=== PATIENT | male | born 1955 | race Caucasian/White ===

== ENCOUNTER 2017-06-07 13:15 | Inpatient (IN) | payer MEDICARE, MEDICAID ==
[2017-06-07] MEDS ORDERED: Lorazepam 1 MG TAB ONE (13:45)
[2017-06-07 15:24] LABS: Hematocrit 41.1 % (42.0-52.0); Mean Platelet Volume 7.7 fL (7.4-10.4); Red Blood Cell (RBC) Count 4.31 mill/uL (4.70-6.10); White Blood Cell (WBC) Count 9.5 thou/uL (4.8-10.8)
[2017-06-07 15:42] LABS: ALT (SGPT) 42 U/L (8-55); AST (SGOT) 67 U/L (5-34); Alkaline Phosphatase 96 U/L (40-150); Anion Gap 10 mmol/L (10-20); BUN (Urea Nitrogen) 32 mg/dL (8.4-25.7); Bilirubin, Total 0.5 mg/dL (0.2-1.2); Calc. Creatinine Clearance 0 mL/min (70-130); Carbon Dioxide 32 mmol/L (23-31); Chloride 96 mmol/L (98-107); Estimated GFR-MDRD 59
[2017-06-07 15:43] LABS: Calcium 14.9 mg/dL (7.8-10.44)
[2017-06-07 15:44] LABS: Troponin I 0.012 ng/mL (< 0.028)
[2017-06-07 15:46] LABS: Neutrophil 93 % (42-75)
--- NOTE | 2017-06-07 16:05 | CT ---
CT OF THE SOFT TISSUES OF THE NECK WITH IV CONTRAST: INDICATION: History of cervical lymphadenopathy, basal cell carcinoma, chronic hepatitis, and severe intellectua l disability. FINDINGS: The visualized intracranial contents appear within normal limits. The visualized assembler installer general space a ppears within normal limits. There is extensive lymphadenopathy involving the cervical chains bilat erally. One of the largest is seen within the right level II-A position measuring 1.8 cm. There is extensive enlargement of the adenoidal and palatine soft tissues. There is a retropharyngeal edema present. There is nonspecific wall thickening involving the hypopharynx. There are prominent lymp h nodes seen adjacent to submandibular and right parotid gland. The thyroid gland is normal-appeari ng. The submandibular gland is normal-appearing. There is extensive lymphadenopathy within the sup raclavicular region. The largest is seen on the right measuring 2.6 cm on image 76 of series 2. Th ere is extensive adenopathy within the mediastinum and axillary regions. The visualized lung apices are clear. There is scattered degenerative and osteoarthritic change. N o definite acute osseous abnormality is evident. Visualized paranasal sinuses are clear. IMPRESSION: Extensive lymphadenopathy of the neck and upper thorax is suspicious for entities such as leukemia o r lymphoma. There is also soft tissue prominence seen involving the lower aspect of the hypopharynx which is non specific. Pharyngitis cannot be entirely excluded. ENT consultation may be helpful. Mild narrowin g of the airway is seen in this location. There is edema seen within the retropharyngeal space whic h is nonspecific. POS: LIZBETH
[2017-06-07] MEDS ORDERED: ISOVUE-370 76%-LOCM 1 ML ONE (16:11)
[2017-06-07] MEDS ORDERED: Zoledronic Acid 4 MG in Sodium Chloride 0.9% 100 ML IVPB SCH (17:45)
[2017-06-07] MEDS ORDERED: Acetaminophen 325 MG TAB PO PRN (18:07)
[2017-06-07 18:41] LABS: Magnesium 2.1 mg/dL (1.6-2.6)
--- NOTE | 2017-06-07 18:47 | HP ---
PRIMARY CARE PHYSICIAN: Dr. Tawanna Hendricks. CHIEF COMPLAINT: Weakness. HISTORY OF PRESENT ILLNESS: Mr. Almonte is a pleasant 61-year-old gentleman, who was seen at [facility] on 06/07/2017. He was sent here from [facility]. Mr. Almonte is currently sedated, having received Ativan for his CT scan of the neck. He is unable to provide any history or review of systems. History was obtained from review of medical record as we ll as from discussion with the emergency room physician. The patient was reportedly refusing to eat at [facility]. He was also weak. He also had a positive infectious mononucleosis screen on 05/26/2017. He also reportedly has cervical lymphaden opathy and was therefore sent to the emergency room. PAST MEDICAL HISTORY: Significant for actinic keratosis, basal cell carcinoma of the nose, benign p rostatic hyperplasia, chronic hepatitis B, dyslipidemia, insomnia, intermittent explosive disorder, nicotine dependence, psoriasis, colon polyposis, seborrheic dermatitis of the scalp, severe intellec tual disability, venous varices and vitamin D deficiency. PAST SURGICAL HISTORY: Significant for liver biopsy and transurethral resection of the prostate. SOCIAL HISTORY: Not available at this time, since the patient is unable to provide. FAMILY HISTORY: Not available at this time. ALLERGIES: No known drug allergies. CURRENT MEDICATIONS: Calcium carbonate 1500 mg daily, clindamycin topical gel 2 times a day, fish o il 2000 mg at bedtime, Myrbetriq 25 mg daily, Pravachol 40 mg at bedtime, Seroquel 300 mg at bedtime , vitamin D3 of 800 units every morning. PHYSICAL EXAMINATION: GENERAL: Mr. Almonte is sleepy, but arousable, not in acute distress. VITAL SIGNS: Blood pressure is 132/78, pulse is 76, he is breathing at rate of 20 and saturating 89 % on room air. He is saturating 92% on 2 liters of oxygen. He is afebrile. EYES: No scleral icterus, no conjunctival pallor. ENT: Moist mucosal membranes, no oropharyngeal erythema or exudates. NECK: Nontender, trachea midline, no thyromegaly. RESPIRATORY: Accessory muscles of breathing are not active. Chest wall movements are symmetric fredrick aterally. LUNGS: Clear to auscultation without wheeze, rhonchi or crepitations. CARDIOVASCULAR: S1 and S2 are heard, regular. Peripheral pulses are palpable. No carotid bruit, n o pericardial rub. ABDOMEN: Soft, nontender, bowel sounds heard, no hepatomegaly, no splenomegaly. NEUROLOGIC: Full neurologic examination was not possible secondary to the patient's noncooperation. No facial droop. Deep tendon reflexes are 2+, plantar reflexes downgoing bilaterally. MUSCULOSKELETAL: The patient is moving all four extremities. Normal passive range of movement at a ll major extremity joints. LYMPHATIC: The patient has multiple enlarged cervical lymph nodes, soft consistency, not tethered t o skin. PSYCHIATRIC: Unable to assess mood, affect or orientation to person, place or time. SKIN: No rashes. He does have cervical swellings. LABORATORY DATA: Mr. Almonte's labs and investigations were reviewed. He had a CT scan of the neck, which showed extensive lymphadenopathy of the neck and upper thorax, suspicious for entities such as leukemia or lymphoma according to the radiologist. Pharyngitis could not be excluded based on the CT scan. He also had mild narrowing of the airway at the pharyngeal level. He had nonspecific laura a within the retropharyngeal space. Laboratory investigations show normal white count, 93% neutroph ils, macrocytic anemia with hemoglobin 13.3, normal platelet count, decreased sodium of 134, normal potassium, elevated blood urea nitrogen of 32, normal creatinine, elevated calcium of 14.9, decrease d albumin of 3.0, elevated AST of 67, normal ALT, normal alkaline phosphatase and normal total bilir ubin. Bell screen is negative. ASSESSMENT AND PLAN: Mr. Almonte is a pleasant 61-year-old gentleman, who was seen at [facility] on 06/07/2017. His problem list includes: 1. Cervical lymphadenopathy: Etiology is unclear, but given his hypercalcemia, is suspicious for m alignancy such as lymphoma. Mr. Almonte will be admitted to the hospital. I will request a CT scan o f the chest, abdomen, and pelvis. Oncologist on-call, has already been contacted by the emergency r oom physician and will be consulted. 2. Hypercalcemia: Mr. Almonte has received Zometa, we will recheck calcium level. We will also prov asa intravenous fluids to decrease the calcium level. 3. Hyponatremia: Mild, we will recheck. 4. Dehydration: The patient is clinically dehydrated. We will administer IV fluids. 5. Chronic hepatitis B: Presumed to be stable. 6. Dyslipidemia: Continue fish oil and Pravachol. 7. Vitamin D deficiency: Check vitamin D level, hold off on supplemental vitamin D at this time gi ruiz his hypercalcemia. LEVEL OF RISK: Moderate. LEVEL OF COMPLEXITY: Moderate.
[2017-06-07] MEDS: Sodium Chloride 0.9% 1,000 ML IV SCH (20:19)
[2017-06-07 21:16] VITALS: BMI 21.4
[2017-06-08] MEDS: Sodium Chloride 0.9% 1,000 ML IV SCH ×3 (05:26→16:45)
[2017-06-08 06:00] LABS: #Basophils 0.1 thou/uL (0.0-0.2); #Eosinphils 0.3 thou/uL (0.0-0.7); #Lymphocytes 1.9 thou/uL (1.20-3.40); #Monocytes 1.8 thou/uL (0.11-0.59); #Neutrophils 8.1 thou/uL (1.40-6.50); %Basophils 0.6 % (0.0-1.0); %Eosinophils 2.3 % (0.0-10.0); %Lymphocytes 15.9 % (21.0-51.0); %Monocytes 14.6 % (0.0-10.0); Hematocrit 41.8 % (42.0-52.0); Mean Platelet Volume 8.2 fL (7.4-10.4); Red Blood Cell (RBC) Count 4.38 mill/uL (4.70-6.10); White Blood Cell (WBC) Count 12.1 thou/uL (4.8-10.8)
[2017-06-08 06:41] LABS: Anion Gap 9 mmol/L (10-20); BUN (Urea Nitrogen) 27 mg/dL (8.4-25.7); BUN/Creatinine Ratio 24.11; Calc. Creatinine Clearance 58 mL/min (70-130); Calcium 11.9 mg/dL (7.8-10.44); Carbon Dioxide 29 mmol/L (23-31); Chloride 104 mmol/L (98-107); Estimated GFR-MDRD 66; Phosphorus 2.1 mg/dL (2.3-4.7)
[2017-06-08] MEDS ORDERED: Lorazepam 0.5 MG TAB PO PRN (06:59)
[2017-06-08] MEDS: Enoxaparin Sodium 40 MG/0.4 ML SYRINGE SC SCH (08:20)
[2017-06-08] MEDS ORDERED: FLU VACC QS2017-18 36 mo. & older 0.5 ML SYRINGE IM ONE (09:00)
--- NOTE | 2017-06-08 11:32 | CT ---
CT CHEST WITH IV CONTRAST CT ABDOMEN WITH IV CONTRAST CT PELVIS WITH IV CONTRAST: Date: 06/08/17 CLINICAL HISTORY: Cervical lymphadenopathy, basal cell carcinoma, chronic hepatitis. Severe intellectual disability. FINDINGS: There is extensive lymphadenopathy involving the neck, chest (mediastinum), axilla, abdomen (mesente craig, retroperitoneal, and retrocrural), pelvic, and bilateral inguinal regions. There are dependent changes in the lung bases with a tiny left pleural effusion. A 12.0 mm parenchym al nodule is present in the right middle lobe. There is some high density material in the dependent portion of the gallbladder. There is a 12.0 mm low density lesion in the left lobe of the liver. These could be better evaluated with US. The spleen is enlarged, measuring about 9.7 cm in oblique AP dimension. The pancreas, kidneys, and a drenal glands are unremarkable. No free air or free fluid is seen in the abdomen or pelvis. There ar e vascular calcifications without evidence of aneurysmal dilatation of the abdominal aorta. The pros park is enlarged. There are degenerative changes in the spine. The enlarged lymph nodes in the inguinal regions measure 3.0 cm in largest dimension on the right, w hich is solid, and 2.3 cm on the left, which is complex (with solid and cystic components). Recommen d choosing the right rather than the left inguinal lymph node if a biopsy is considered. The small bowel loops are not abnormally dilated. A normal appearing appendix is present. IMPRESSION: 1. Extensive lymphadenopathy in the neck, chest, abdomen, pelvis, and inguinal regions suspicious f or lymphoma. 2. Indeterminate 12.0 mm right middle lobe lung nodule. The possibility of this representing lung m alignancy cannot be excluded. POS: LIZBETH
--- NOTE | 2017-06-08 14:53 | PDOC.PN ---
- Subjective Encounter Start Date: 06/08/17 Encounter Start Time: 09:45 Subjective: awake, no agitation or in distress -: maintaining airway - Objective MAR Reviewed: Yes Vital Signs & Weight: Vital Signs (12 hours) Temp Pulse Resp BP Pulse Ox 06/08/17 08:00 98.2 F 78 20 133/83 95 06/08/17 04:00 98.2 F 82 20 162/57 H 89 L Weight Admit Weight 133 lb 1.6 oz Weight 133 lb 1.6 oz I&O: 06/07/17 06/08/17 06/09/17 06:59 06:59 06:59 Intake Total 1200 480 Balance 1200 480 Result Diagrams: 06/08/17 05:42 06/08/17 05:42 Phys Exam - Physical Examination HEENT: PERRLA, sclera anicteric no teeth, has multiple lymph nodes, largest right submand Neck: no JVD Respiratory: no wheezing, no rales Cardiovascular: RRR, no significant murmur Gastrointestinal: soft, non-tender, no distention, positive bowel sounds Musculoskeletal: no edema, pulses present Neurological: non-focal, moves all 4 limbs Dx/Plan (1) Lymphadenopathy Code(s): R59.1 - GENERALIZED ENLARGED LYMPH NODES Status: Acute Comment: likely due to lymphoma, will need biopsy (2) Intellectual disability Code(s): F79 - UNSPECIFIED INTELLECTUAL DISABILITIES Status: Chronic (3) Hypercalcemia Code(s): E83.52 - HYPERCALCEMIA Status: Acute Comment: recieved 1 dose zometa in ER (4) Hepatitis B Status: Chronic Qualifiers: Viral hepatitis chronicity: chronic (5) Dyslipidemia Code(s): E78.5 - HYPERLIPIDEMIA, UNSPECIFIED Status: Chronic (6) Psoriasis Code(s): L40.9 - PSORIASIS, UNSPECIFIED Status: Chronic (7) Seborrheic dermatitis Code(s): L21.9 - SEBORRHEIC DERMATITIS, UNSPECIFIED Status: Chronic - Plan will need biopsy of one of the enlarged lymph nodes -: will d/w /gen surgery for ing node bx -: pt likely has lymphoma -: social work consult for identifying next of kin to help make decisions -: CT chest/abd/pelvis results noted, continue home meds * . Review of Systems - Medications/Allergies Allergies/Adverse Reactions: Allergies Allergy/AdvReac Type Severity Reaction Status Date / Time No Known Allergies Allergy Verified 06/07/17 19:27 Medications: Current Medications Acetaminophen (Tylenol) 650 mg PO Q4H PRN PRN Reason: Headache/Fever or Pain Enoxaparin Sodium (Lovenox) 40 mg SC 0900 [facility] Last Admin: 06/08/17 08:20 Dose: 40 mg Sodium Chloride (Normal Saline 0.9%) 1,000 mls @ 100 mls/hr IV .Q10H [facility] Last Admin: 06/08/17 06:26 Dose: 1,000 mls Lorazepam (Ativan) 0.5 mg PO Q6H PRN PRN Reason: Agitation Last Admin: 06/08/17 08:19 Dose: 0.5 mg
[2017-06-08] MEDS ORDERED: Atorvastatin Calcium 10 MG TAB PO SCH (21:00)
--- NOTE | 2017-06-08 22:41 | CON ---
DATE OF CONSULTATION: 06/08/2017 REASON FOR CONSULTATION: Lymphadenopathy. HISTORY OF PRESENT ILLNESS: Mr. Almonte is a 61-year-old gentleman who is a resident of [facility]. He presented to the emergency room with a complaint of weakness and loss of appetite. He had a recent positive mononucleosis screen in April. He had a cervical lymphadenopathy prior to admission. He had a soft tissue neck CT performed showed extensive lymphadenopathy of the neck and upper thorax. He had a soft tissue prominence in the lower aspect of the hypopharynx. There was mild narrowing of the airway seen at this mass. Lab revealed calcium of 14.9. He did receive a dose of zoledronic acid and was started on IV fluids and admitted for further evaluation. This morning, he had a CT of the chest, abdomen, and pelvis that showed extensive lymphadenopathy involving the neck, chest, mediastinum, axilla , abdomen, mesenteric, retroperitoneal and retrocrural, the pelvic and bilateral inguinal regions. It was suspicious for lymphoma. Patient has a history of severe intellectual disability with intermittent explosive disorder. He is a resident of [facility]. History was obtained from review of medical records and caregiver at bedside. PAST MEDICAL HISTORY: 1. Actinic keratosis. 2. Basal cell carcinoma of the nose. 3. Benign prostatic hypertrophy. 4. Chronic hepatitis B. 5. Dyslipidemia. 6. Insomnia. 7. Polyposis of the colon. 8. Seborrheic dermatitis. 9. Severe intellectual disability. 10. Vitamin D deficiency. PAST SURGICAL HISTORY: TURP and liver biopsy. ALLERGIES: No known drug allergies. HOME MEDICATIONS: 1. Calcium carbonate daily. 2. Clindamycin topical gel p.r.n. 3. Fish oil daily. 4. Myrbetriq 25 mg daily. 5. Pravachol 40 mg 2 tabs at bedtime. 6. Seroquel 300 mg daily. 7. Vitamin D3 daily. FAMILY HISTORY: Unavailable. SOCIAL HISTORY: Lives at [facility]. According to his caregiver, he is able to perform his ADLs with minimal assistance. REVIEW OF SYSTEMS: Unable to obtain secondary to intellectual disability. PHYSICAL EXAMINATION: VITAL SIGNS: Temperature is 98.2, pulse is 78, respiratory rate 20, BP is 133/ 83, he is 95% on room air. GENERAL: The patient is awake and in no acute distress. HEENT: Normocephalic, atraumatic. NECK: Supple. He has palpable cervical lymphadenopathy bilaterally. CARDIOVASCULAR: Regular rate and rhythm. LUNGS: Clear to auscultation. ABDOMEN: Soft, nontender. EXTREMITIES: There is no clubbing, cyanosis or edema. SKIN: There is no rash. LYMPHATIC: He has palpable lymph nodes in his neck and his axillary and in his inguinal space bilaterally. NEUROLOGIC: Nonfocal. PSYCHIATRIC: The patient responds to pleasantries and will shake hands but is unable to ascertain place and time and grasp of the situation. PERTINENT LABORATORY AND X-RAYS: Current WBCs are 12.1, hemoglobin 13.4, hematocrit 41.8, platelet count is 252,000, 66% neutrophils, 16% lymphocytes, 14 % monocytes. Sodium is 138, potassium 3.7, chloride 104, CO2 is 29, BUN is 27, creatinine 1.12, calcium is 11.9, phosphorus 2.1, total bilirubin is 0.5, AST 67 , ALT is 42, alkaline phosphatase is 96, CK-MB is 2.2, troponin 0.012. Serum total protein is 6, albumin 2.6, globulin 3. [place] screen is negative. Radiology per HPI. ASSESSMENT: 1. Extensive lymphadenopathy consistent with lymphoma. 2. Hypercalcemia consistent with bone marrow infiltration. DISCUSSION: I was able to contact his sister and guardian, Ana Luisa Almonte in [place] by cell phone. She was updated on the situation. We discussed the likelihood that this is a lymphoma and that he would need chemotherapy; however , he is a poor candidate for this. He would not understand the current situation and likely become sick from the medications required to treat the lymphoma. Our recommendation is to allow him to go back to his environment that he is in comfortable in and resume his ADLs with the goal of comfort. Discussed that the biopsy would not be necessary if this is their choice, otherwise we will proceed forward. She would like to speak with her brothers and will let us know her decision tomorrow. I will continue IV fluids for his hypercalcemia. Thank you for the consult. We will follow him closely. CARITO
[2017-06-09] MEDS: Sodium Chloride 0.9% 1,000 ML IV SCH ×2 (05:10→12:47)
[2017-06-09 05:47] LABS: Anion Gap 9 mmol/L (10-20); BUN (Urea Nitrogen) 28 mg/dL (8.4-25.7); Calc. Creatinine Clearance 58 mL/min (70-130); Carbon Dioxide 30 mmol/L (23-31); Chloride 101 mmol/L (98-107); Estimated GFR-MDRD 66; Phosphorus 1.6 mg/dL (2.3-4.7)
[2017-06-09 06:24] LABS: Band 8 % (5-11); Hematocrit 40.3 % (42.0-52.0); Mean Platelet Volume 8.3 fL (7.4-10.4); Neutrophil 61 % (42-75); Red Blood Cell (RBC) Count 4.25 mill/uL (4.70-6.10); White Blood Cell (WBC) Count 12.6 thou/uL (4.8-10.8)
[2017-06-09] MEDS: Enoxaparin Sodium 40 MG/0.4 ML SYRINGE SC SCH (08:38)
[2017-06-09 15:03] VITALS: BP 142/88; TEMP 98.1
--- NOTE | 2017-06-09 15:29 | PDOC.PN ---
- Subjective Encounter Start Date: 06/09/17 Encounter Start Time: 10:30 Subjective: awake, not in distress -: is eating per provider from snf - Objective MAR Reviewed: Yes Vital Signs & Weight: Vital Signs (12 hours) Temp Pulse Resp BP Pulse Ox 06/09/17 15:02 98.1 F 98 22 H 142/88 H 92 L 06/09/17 08:47 97 06/09/17 08:00 98.5 F 85 20 122/73 Weight Admit Weight 133 lb 1.6 oz Weight 133 lb 1.6 oz I&O: 06/08/17 06/09/17 06/10/17 06:59 06:59 06:59 Intake Total 1200 960 500 Balance 1200 960 500 Result Diagrams: 06/09/17 05:02 06/09/17 05:02 Phys Exam - Physical Examination HEENT: PERRLA, sclera anicteric Neck: no JVD has multiple lymph nodes, large submandibular right Respiratory: no wheezing, no rales Cardiovascular: RRR, no significant murmur Gastrointestinal: soft, no distention, positive bowel sounds Musculoskeletal: no edema, pulses present Neurological: non-focal, moves all 4 limbs Dx/Plan (1) Lymphadenopathy Code(s): R59.1 - GENERALIZED ENLARGED LYMPH NODES Status: Acute Comment: likely due to lymphoma (2) Intellectual disability Code(s): F79 - UNSPECIFIED INTELLECTUAL DISABILITIES Status: Chronic (3) Hypercalcemia Code(s): E83.52 - HYPERCALCEMIA Status: Acute Comment: recieved 1 dose zometa in ER (4) Hepatitis B Status: Chronic Qualifiers: Viral hepatitis chronicity: chronic (5) Dyslipidemia Code(s): E78.5 - HYPERLIPIDEMIA, UNSPECIFIED Status: Chronic (6) Psoriasis Code(s): L40.9 - PSORIASIS, UNSPECIFIED Status: Chronic (7) Seborrheic dermatitis Code(s): L21.9 - SEBORRHEIC DERMATITIS, UNSPECIFIED Status: Chronic - Plan Ms.Julie Majano is in touch with pts sister -: per their conversation pt is for hospice, is a poor candidate for chemo/rad -: may dc anytime to hospice, CM for help with setting up hospice at [facility] * .
--- NOTE | 2017-06-09 22:28 | DIS ---
DATE OF ADMISSION: 06/07/2017 DATE OF DISCHARGE: 06/09/2017 DISCHARGE DISPOSITION: To snf with hospice. PRIMARY DISCHARGE DIAGNOSIS: Generalized lymphadenopathy suspicious for lymphoma. SECONDARY DISCHARGE DIAGNOSES: History of intellectual disability, living in a snf; hypercal cemia due to lymphoma; chronic hepatitis B; dyslipidemia; psoriasis; seborrheic dermatitis. PROCEDURES DONE DURING HOSPITALIZATION: The patient has had CT soft tissue neck done, which showed extensive lymphadenopathy in the neck, and upper thorax suspicious for leukemia or lymphoma. CT of the chest, abdomen, and pelvis done showed extensive lymphadenopathy in the neck, chest, abdomen, pe lvis and inguinal region suspicious for lymphoma. White count of 9 with H\T\H of 13 and 41, platele t count 249 with 93% neutrophils. He had a serum calcium of 14.9 with albumin levels of 3.0 on the day of admission, 25-hydroxyvitamin D levels were 29.4. Intact PTH 8.8. Discharge calcium is 11. HIV 1 and 2 was nonreactive. [place] screen was negative. DISCHARGE MEDICATIONS: Patient to continue all his home medications as before including Myrbetriq e xtended release 25 mg daily, omega-3 fatty acids 1 capsule twice daily, Pravachol 40 mg p.o. at bedt angella, Seroquel 300 mg p.o. at bedtime. ALLERGIES: No known drug allergies. INPATIENT CONSULTS: Ms. Kyra Majano, for Oncology BRIEF COURSE DURING HOSPITALIZATION: The patient initially got admitted on 06/07/2017 after he was sent from snf for swelling in his neck and generalized weakness. The patient was found to hicks ve had multiple cervical lymph nodes, enlarged, especially the right submandibular lymph node was en larged. He has had a CT neck along with a CT chest, abdomen and pelvis done, all of which revealed significant lymphadenopathy suggestive of lymphoma. The patient had hypercalcemia and received Zome ta in the ER one dose. He has had consultation with Ms. Kyra Majano, for Oncology. Ms. Kyra del real was in touch with the patient's sister who lives in [place] on telephone, who is also the power o f [employer] utility worker for patient due to his intellectual disability. The patient was not a candidate for chem oradiation per Oncology and no further workup was done after discussing with patient's sister. They have also agreed to go under hospice to the snf. In view of this, he is being discharged ba ck to snf with hospice. His overall prognosis is poor. Please [facility].
== END 2017-06-09 17:17 | disposition hospice, home (50) | DRG 841 ==
LOC: ERS 13:15 → T4-A 18:18
PROVIDERS: ADMIT Internal Medicine; ATTEND Internal Medicine
DX: C85.98 Non-Hodgkin lymphoma, unspecified, lymph nodes of multiple sites (principal); F72 Severe intellectual disabilities; C79.52 Secondary malignant neoplasm of bone marrow; E87.1 Hypo-osmolality and hyponatremia; E83.52 Hypercalcemia; B18.1 Chronic viral hepatitis B without delta-agent; E86.0 Dehydration; B27.90 Infectious mononucleosis, unspecified without complication; L57.0 Actinic keratosis; N40.0 Benign prostatic hyperplasia without lower urinary tract symptoms; Z85.828 Personal history of other malignant neoplasm of skin; E78.5 Hyperlipidemia, unspecified; G47.00 Insomnia, unspecified; F63.81 Intermittent explosive disorder; F17.210 Nicotine dependence, cigarettes, uncomplicated; L40.9 Psoriasis, unspecified; D12.6 Benign neoplasm of colon, unspecified; I83.90 Asymptomatic varicose veins of unspecified lower extremity; E55.9 Vitamin D deficiency, unspecified; Z90.79 Acquired absence of other genital organ(s); D64.9 Anemia, unspecified; L21.9 Seborrheic dermatitis, unspecified
CPT/HCPCS: 36415; 70491; 71260; 74177; 80053; 80069; 82306; 82553; 83735; 83970; 84100; 84484; 85025; 86308; 87389; 93005; J1650; J3489; J7050